=== PATIENT | female | born 1955 | race Caucasian/White ===

== ENCOUNTER 2017-07-09 14:28 | Emergency (ER) | payer SELFPAY ==
[~2017-07-09] VITALS: Ht 172.7 cm; Wt 93.0 kg
[~2017-07-09 14:28] MED LIST: HYCO5UDC PO
[2017-07-09 14:56] VITALS: BP 134/75; PULSE 82; RESP 16; TEMP 98.3; O2SAT 97
[2017-07-09] MEDS ORDERED: BACT800T5 PO (16:29)
--- NOTE | 2017-07-09 16:31 | PD ---
HPI Chief Complaint: Facial Pain or Swelling Time Seen by Provider: 16:18 Travel History International Travel<30 days: No Contact w/Intl Traveler<30days: No Traveled to known affect area: No History of Present Illness HPI 61 y female presents to emergency department complaining of left facial swelling that occurred today while she was [place] the [employer] [place] that started several hours ago. States that the bottom of her left ear she noticed increased swelling that rapidly grew in size over an hour and decided to come to the ED today for evaluation. Since patient has been waiting, states that the swelling has decreased in size. Patient denies pain except for palpation. Patient denies fever or chills. Denies recent illness. Denies chronic medical problems or medication use. Denies history of cancer, night sweats, unexplained weight loss. Patient states that this is never happened before. Denies chronic medical problems or medication use. She does not follow a PCP. She has no other complaints today. PFSH Past Medical History Medical History: Denies Significant Hx Immunizations Current: Yes Influenza Vaccination: No ?: Not Menopausal: Yes : 3 Para: 3 Tubal Ligation: Yes Past Surgical History Surgical History: No Previous Surgery Social History Alcohol Use: Yes (RARE) Tobacco Use: No Substance Use: No Allergies-Medications (Allergen,Severity, Reaction): Coded Allergies: No Known Allergies (Unverified Adverse Reaction, Unknown, 07/09/17) Reported Meds & Prescriptions Reported Meds & Active Scripts Active Bactrim DS (Sulfamethoxazole-Trimethoprim) 800-160 Mg Tab 1 Tab PO BID Review of Systems Except as stated in HPI: all other systems reviewed are Neg Physical Exam Narrative GENERAL: Well-nourished, well-developed patient. SKIN: Focused skin assessment warm/dry. No rashes or lesions noted on focal assessment of the face or neck HEAD: Normocephalic. EYES: No scleral icterus. No injection or drainage. NECK: Supple, trachea midline. No JVD. Left neck just below the earlobe 1.5cm round lump fluctuant mass, non tender to light palpation, TTP to deep palpation. No puncta or erythema No supraclavicular lymphadenopathy, no other lymphadenopathy Mouth- no fluctuance or TTP of gumline. no masses. gingiva non friable. CARDIOVASCULAR: Regular rate and rhythm without murmurs, gallops, or rubs. RESPIRATORY: Breath sounds equal bilaterally. No accessory muscle use. GASTROINTESTINAL: Abdomen soft, non-tender, nondistended. MUSCULOSKELETAL: No cyanosis, or edema. BACK: Nontender without obvious deformity. No CVA tenderness. Data Data Last Documented VS Vital Signs Date Time Temp Pulse Resp B/P (MAP) Pulse Ox O2 Delivery O2 Flow Rate FiO2 07/09/17 14:56 98.3 82 16 134/75 (94) 97 Orders Orders Ed Discharge Order (07/09/17 16:47) [facility] Medical Decision Making Medical Screen Exam Complete: Yes Emergency Medical Condition: Yes Differential Diagnosis Reactive lymphadenopathy, lymphoma, lymphedema, dental abscess, cellulitis Narrative Course 61 y female presents to emergency department complaining of left facial swelling that occurred today while she was at the [employer] market that started several hours ago. States that the bottom of her left ear she noticed increased swelling that rapidly grew in size over an hour and decided to come to the ED today for evaluation. Since patient has been waiting, states that the swelling has decreased in size. Patient denies pain except for palpation. Patient denies fever or chills. Denies recent illness. Denies chronic medical problems or medication use. Denies history of cancer, night sweats, unexplained weight loss. Patient states that this is never happened before. Denies chronic medical problems or medication use. She does not follow a PCP. She has no other complaints today. Vital signs stable. Physical exam findings consistent with a nonspecific left neck lymphadenopathy vs cyst We discussed imaging studies versus treatment. I explained that without imaging , I could not tell her what the mass was but could only speculate. Because patient does not follow primary care physician and she is rather reluctant to follow one, will prescribe Bactrim for possible developing abscess versus cyst. I highly encouraged patient to follow up with a primary care physician. I explained my concerns for possible etiologies of this cystlike mass on her neck.. She states understanding and will comply. Diagnosis Primary Impression: Left facial swelling Referrals: [facility] Additional Instructions: As discussed, only take medication if your symptoms worsen. Follow-up with your primary care physician or [facility] You may use Tylenol or Motrin per package instructions for pain. If your symptoms persist or worsen return to the emergency department. Scripts Sulfamethoxazole-Trimethoprim (Bactrim DS) 800-160 Mg Tab 1 TAB PO BID for Infection, #14 TAB 0 Refills Prov: Merle Tavares 07/09/17 Disposition: 01 DISCHARGE HOME Condition: Stable Merle Tavares Jul 09, 2017 16:31
== END 2017-07-09 17:05 | disposition home or self-care (01) ==
LOC: PHED 14:28 → PHEFT 17:05
DX: R22.0 Localized swelling, mass and lump, head (principal)
CPT/HCPCS: 99283